=== PATIENT | female | born 1960 | race Caucasian/White ===

== ENCOUNTER 2018-08-16 11:21 | Outpatient (CLI) | payer MEDICAID ==
[~2018-08-16] VITALS: Ht 162.6 cm; Wt 64.5 kg
--- NOTE | ~2018-08-16 | HEMODYNAMI ---
PATIENT:SANDRA DUPONT MEDICAL RECORD: [id number] : 64 LOCATION:[facility] ADMISSION DATE: 08/16/18 Generatedon:08/16/201815:05 Patient name: SANDRA DUPONT Patient #: [id number] SSN: DO B: 1960 Date of study: 08/16/2018 Page: Of Hemodynamic Procedure Report Patient Data Patient Demographics Procedure consent was obtained First Name: SANDRA Gender: Female Last Name: CRESENCIO : 1960 [facility] Initial: HOSSEIN Age: 58 year(s) Patient #: [id number] Race: Unknown Additional ID: [id number] Contact details [address]: [address] [place] [address] State: [place] City: [place] Zip code: [address] Admission Admission Data Admission Date: 08/16/2018 Admission Time: 11:21 Procedure Procedure Types Cath Procedure Diagnostic Procedure LHC LHC w/Coronaries Sedation Charges Moderate Sedation up to 15 minutes PCI Procedure Coronary Stent Coronary Stent Initial Procedure Description Procedure Date Procedure Date: 08/16/2018 Procedure Start Time: 14:46 Procedure End Time: 15:01 Procedure Staff Name Function Aman Westfall MD Performing Physician Fely Carrasco RT Monitor Virgil Cano RT Scrub Janel Cisneros RN Nurse Procedure Data Cath Procedure Fluoroscopy Diagnostic fluoroscopy Total fluoroscopy Time: 3.6 time: 3.6 min min Diagnostic fluoroscopy Total fluoroscopy dose: 131 dose: 131 mGy mGy Contrast Material Contrast Material Type Amount (ml) Isovue 300 77 Entry Location Entry Primary Successful Side Size Upsize Upsize Entry Closure Frankel ccessful Closure Location (Fr) 1 (Fr) 2 (Fr) Remarks Device Remarks Radial Right 6 Fr Mechanical artery Short Compression Estimated blood loss: 5 ml Diagnostic catheters Device Type Used For End Catheter Placement DIAGNOSTIC Burna 110cm 5 Multi-vessel Fr catheter ([id number]) Angiography Procedure Complications No complications Procedure Medications Medication Administration Route Dosage 0.9% NaCl I.V. 100 ml/hr Oxygen etCO2 Nasal cannula 2 l/min Lidocaine 2% added to field 20 Heparin Flush Bag added to field 2 bags (1000units/500ml NS) Radial Cocktail added to field 1 syringe (Verapomil 2mg/Nitro 400mcg/Heparin 1500units) Versed I.V. 2 mg Fentanyl I.V. 50 mcg Heparin Bolus I.V. 5000 units Integrilin (Bolus I.V. 5.6 ml 2mg/ml) Plavix P.O. 600 mg Hemodynamics Rest Heart Rate: 76 (bpm) Pressure Samples Time Site Value (mmHg) Purpose Heart Use Rate(bpm) 14:50 LV 5/-32,-9 Snapshot 93 Gradients Valve Time Site Site Mean SEP/DFP Peak To Heart Use 1 2 (mmHg) (sec/min) Peak Rate (mmHg) (bpm) Aortic 14:50 LV AO 90 Snapshots Pre Cath Intra NCS Post Cath Vital Signs Time Heart Resp SPO2 etCO2 NIBP (mmHg) Rhythm Pain Sedation Rate (ipm) (%) (mmHg) Status Level (bpm) 14:42:11 73 19 97 32 130/74(104) NSR 0 (11) 10(A) , No pain 14:46:23 81 18 98 22.4 116/70(90) NSR 0 (11) 10(A) , No pain 14:51:20 86 21 98 29.8 108/61(88) NSR 0 (11) 9(A) , No pain 14:55:28 82 21 98 32 122/65(97) NSR 0 (11) 9(A) , No pain 14:59:40 80 21 98 30.5 118/67(98) NSR 0 (11) 10(A) , No pain Medications Time Medication Route Dose Verified Delivered Reason Not es Effectiveness by by 14:48:23 0.9% NaCl I.V. 100 Aman Islas used for ml/hr Malou Blayne procedure MD SANTOS 14:48:29 Oxygen etCO2 2 l/min Aman Islas used for Nasal Malou Blayne procedure cannula MD SANTOS 14:48:36 Lidocaine 2% added 20ml Aman Newton for local to vial Malou Malou anesthetic field MD BUNCH 14:48:41 Heparin Flush added 2 bags Aman Newton used for Bag to Malou Malou procedure (1000units/500ml field MD BUNCH NS) 14:48:50 Radial Cocktail added 1 Aman Newton used for (Verapomil to syringe [facility] procedure 2mg/Nitro field MD BUNCH 400mcg/Heparin 1500units) 14:48:58 Versed I.V. 2 mg Aman Gallaghera for sedation St Maged Cisneros MD RN 14:49:05 Fentanyl I.V. 50 mcg Aman Islas for sedation St Maged Cisneros MD, RN 14:55:18 Heparin Bolus I.V. 5000 Aman Gallaghera for hebert ified units [facility] anticoagulation with Dr. MD SANTOS [place] 14:55:34 Integrilin I.V. 5.6 ml Aman Gallaghera for was yao (Bolus 2mg/ml) MalouMaged Cisneros antiplatelet 4.4mL RN therapy 14:55:58 Plavix P.O. 600 mg Aman Gallaghera for Cyclone Blayne antiplatelet MD SANTOS therapy Procedure Log Time Note 14:22:15 Diagnostic Cath Status : Elective 14:23:15 Virgil Cano RT(R) sent for patient. Start room use. 14:23:16 Time tracking: Regular hours (M-F 7:00 - 5:00) 14:23:23 Plan of Care:Hemodynamics will remain stable., Cardiac rhythm will remain stable., Comfort level will be maintained., Respiratory function will remain adequate., Patient/ family verbilizes understanding of procedure., Procedure tolerated without complication., Recovers from procedure without complications.. 14:29:48 Patient received from Pre/Post Procedure Room to CCL 3 Alert and oriented. Tansferred to table in Supine position. 14:29:50 Warm blankets applied, and risa hugger turned on for patient comfort. 14:29:50 Correct patient and procedure confirmed by team. 14:29:53 Signed procedure consent form obtained from patient. 14:29:55 ECG and BP/O2 sat monitors applied to patient. 14:41:08 Vital chart was started 14:41:10 Baseline sample Acquired. 14:41:14 Rhythm: sinus rhythm 14:41:15 Full Disclosure recording started 14:41:20 H&P Date Dictated: 08/16/2018 Within 30 days and on chart., H&P Addendum completed by physician on day of procedure. (MUST COMPLETE FOR ALL OUTPATIENTS). 14:41:46 Pre-procedure instructions explained to patient. 14:41:47 Pre-op teaching completed and patient verbalized understanding. 14:41:48 Family in waiting room. 14:41:50 Patient NPO since Midnight. 14:41:51 Is the patient allergic to Iodine/contrast media? No. 14:41:52 Was the patient premedicated? No 14:41:53 Is patient on blood thinner?No 14:41:55 Patient diabetic? No. 14:41:58 Previous problem with sedation/anesthesia? No ? 14:41:59 Snore? Yes 14:42:01 Sleep apnea? No 14:42:02 Deviated septum? No 14:42:03 Opens mouth fully? Yes 14:42:04 Sticks out tongue? Yes 14:42:07 Airway obstruction? Yes copd 14:42:13 Dentures? Yes in tight 14:42:17 Pre procedure: right dorsailis pedis pulse 1+ Palpable, but thready & weak; easily obliterated 14:42:19 Pre procedure: left dorsailis pedis pulse 1+ Palpable, but thready & weak; easily obliterated 14:42:21 Patient pain scale 0/10 ?. 14:42:27 IV patent on arrival in left forearm with 0.9% NaCl at [facility]. 14:42:29 Lab results completed and on chart. 14:42:33 Right Radial & Right Groin area was prepped with chlora-prep and draped in sterile fashion 14:42:34 Alarms reviewed by R. N. 14:42:34 Sharps counted by scrub and verified by R.N. 14:42:36 Physician arrived 14:42:36 --------ALL STOP TIME OUT------ 14:42:36 Final Timeout: patient, procedure, and site verified with staff and physician. All members of the team are in agreement. 14:42:39 Right Radial & Right Groin site verified by team. 14:42:43 Maximum allowable Isovue 300 dose 300ml. Physician notified. (300ml for normal creatinines. For patients with creatinine of 1.7 or higher multiply weight(kg) x 5 divided by creatinine.) 14:42:47 Fire Safety Assessment: A--An alcohol-based skin anteseptic being used preoperatively., C--Open oxygen or nitrous oxide is being used., D--An ESU, laser, or fiber-optic light is being used. 14:42:50 Physical assessment completed. ASA score P 2 - A patient with mild systemic disease as per Aman Westfall MD. 14:42:54 Sedation plan: IV Moderate Sedation Medication:Versed, Fentanyl 14:42:57 Use device set Radial Dx or PCI 14:42:58 ACIST Syringe (43132) opened to sterile field. 14:42:59 Medline Cath Pack ([id number]) opened to sterile field. 14:42:59 Bag Decanter (2002S) opened to sterile field. 14:43:00 DIAGNOSTIC WIRE .035 260cm J wire (949680) opened to sterile field. 14:43:00 ACIST Hand Control (46053) opened to sterile field. 14:43:00 ACIST Manifold (42409) opened to sterile field. 14:43:01 Tegaderm 4 x 4 (1626W) opened to sterile field. 14:43:01 MBrace Wrist Support ([id number]) opened to sterile field. 14:43:02 SHEATH 6FR Slender (78-2970) opened to sterile field. 14:46:39 Procedure started. 14:46:47 Local anesthetic to right radial artery with Lidocaine 2% by Aman Westfall MD.INITIAL ACCESS ONLY 14:48:23 0.9% NaCl 100 ml/hr I.V. was administered by Janel Cisneros RN; used for procedure; 14:48:27 A 6 Fr Short sheath was inserted into the Right Radial artery 14:48:29 Oxygen 2 l/min etCO2 Nasal cannula was administered by Janel Cisneros RN; used for procedure; 14:48:36 Lidocaine 2% 20ml vial added to field was administered by Aman Westfall MD; for local anesthetic; 14:48:37 A DIAGNOSTIC Burna 110cm 5 Fr catheter ([id number]) was advanced over the wire and used for Multi-vessel Angiography. 14:48:41 Heparin Flush Bag (1000units/500ml NS) 2 bags added to field was administered by Aman Westfall MD; used for procedure; 14:48:43 Zero performed for pressure channel P1 14:48:50 Radial Cocktail (Verapomil 2mg/Nitro 400mcg/Heparin 1500units) 1 syringe added to field was administered by Aman Westfall MD; used for procedure; 14:48:52 Zero performed for pressure channel P1 14:48:58 Versed 2 mg I.V. was administered by Janel Cisneros RN; for sedation; 14:49:00 Zero performed for pressure channel P1 14:49:05 Fentanyl 50 mcg I.V. was administered by Janel Cisneros RN; for sedation; 14:49:17 Baseline sample Acquired. 14:50:05 LV hemodynamics recorded. 14:50:06 LV gram done using CHAPA 14:50:08 Injector settings: Ml/sec: 5, Volume: 15, 14:50:23 EF : 55 % 14:50:42 LCA angiography performed. 14:51:58 RCA angiography performed. 14:52:03 Injector settings: Ml/sec: 3, Volume: 6, 14:52:30 Catheter removed. 14:55:11 INFLATOR Merit BasixCompak (XF2212) opened to sterile field. 14:55:17 WHISPER 300cm guide wire ([id number]) opened to sterile field. 14:55:18 Heparin Bolus 5000 units I.V. was administered by Janel Cisneros RN; for anticoagulation; verified with Dr. Stevens 14:55:34 Integrilin (Bolus 2mg/ml) 5.6 ml I.V. was administered by Janel Cisneros RN; for antiplatelet therapy; wasted 4.4mL 14:55:45 GUIDE 6FR XBLAD 3.5 catheter ([id number]) opened to sterile field. 14:55:56 6 Fr xblad 3.5 guide catheter was inserted over the wire 14:55:58 Plavix 600 mg P.O. was administered by Janel Cisneros RN; for antiplatelet therapy; 14:56:20 whisper wire advanced. 14:56:23 Wire advanced across lesion. 14:58:22 Place stent Inflation Number: 1 A EDWARD OTW 3.0 x 12 stent ([id number]) was prepped and advanced across the Mid CX. The stent was deployed at 14 SYLVIE for 0:30 (min:sec). 14:59:15 Stent catheter was removed intact over wire. 14:59:15 Wire removed. 14:59:16 Guide catheter removed. 14:59:19 TR BAND Standard ([id number]) opened to sterile field. 14:59:28 Sheath removed intact; hemostasis achieved with Mechanical Compression to the Right Radial artery. 14:59:29 Procedure ended.(Physican Out) 14:59:45 Fluoroscopy time 03.60 minutes. 14:59:49 Fluoroscopy dose: 131 mGy 14:59:49 Flurop Dose total: 131 14:59:57 Contrast amount:Isovue 300 77ml. 14:59:59 Sharps counted by scrub and verified by R.N. 15:00:02 TR band inflated with 10cc of air. 15:00:04 Insertion/operative site no bleeding no hematoma. 15:00:07 Post right radial artery:stable 15:00:09 Post Procedure Pulses reassessed and unchanged 15:00:12 Post procedure rhythm: unchanged. 15:00:15 Estimated blood loss: 5 ml 15:00:17 Post procedure instruction explained to patient.Patient verbalizes understanding. 15:00:17 Patient needs reinforcement of post procedure teaching. 15:00:45 Procedure type changed to Cath procedure, Diagnostic procedure, LHC, LHC w/Coronaries, Sedation Charges, Moderate Sedation up to 15 minutes, PCI procedure, Coronary Stent, Coronary Stent Initial 15:00:46 Procedure and supply charges have been captured, reviewed, submitted and are correct. 15:00:51 Procedure Complication : No complications 15:00:54 Vital chart was stopped 15:00:56 See physician's report for complete and final results. 15:00:59 Report given to Pre/Post Procedure Room. 15:01:02 Procedure ended. 15:01:02 Full Disclosure recording stopped 15:01:13 ACC-PCI Only Patient was given prescriptions, or instructed by Aman Westfall MD to start/continue the following medications upon discharge: Plavix 15:01:15 End room use (Document Last) Intervention Summary Intervention Notes Time ActionType Lesion and Equipment Action# Pressure Duration Attributes Used 14:58:22 Place stent Mid CX EDWARD OTW 3.0 1 14 00:30 x 12 stent ([id number]) Device Usage Item Name Manufacture Quantity Catalog Hospital Part Current Mini mal Lot# / Number Charge Number Stock Stock Serial# Code ACIST Syringe Acist 1 99103 628818 984651 870272 20 (28563) VHT Medline Cath Medline 1 [id number] 028620 23885 083207 5 Pack ([id number]) Bag Decanter Microtek 1 380060 47186 177937 5 () Medical Inc. DIAGNOSTIC St Donnie 1 780178 345749 234589 906447 30 WIRE .035 260cm J wire (969025) ACIST Hand Acist 1 13192 076146 109663 470806 5 Control Medical (39473) Systems Inc ACIST Acist 1 29095 362159 682559 266994 5 Manifold Medical (19080) Systems Inc Tegaderm 4 x 3M 1 1626W 857706 998598 590394 5 4 (1626W) MBrace Wrist Advanced 1 140-0250-00 122423 20971 666235 5 Support Vascular ([id number]) Dynamics SHEATH 6FR Terumo 1 [id number] 564713 112976 247632 5 Slender (80-1060) DIAGNOSTIC Terumo 1 40-7743 242662 388485 413793 5 Burna 110cm 5 Fr catheter (068444) INFLATOR Merit 1 RW3541 887687 355927 196963 15 [facility] Medical BasixCompak (XZ5150) WHISPER 300cm Meraz 1 [id number] 490485 899552 741463 5 guide wire Vascular (1213623NP) GUIDE 6FR Cardinal 1 [id number] 732573 533458 550352 10 XBLAD 3.5 Health catheter (39031252) EDWARD OTW 3.0 Medtronic 1 [id number] 222878 6123968 670326 5 [id number] x 12 stent ([id number]) TR BAND Terumo 1 [id number] 424955 567040 173305 40 Standard ([id number]) Signature Audit [place] Stage Time Signature Unsigned Intra-Procedure 08/16/2018 Fely Carrasco 3:05:17 PM RT(R) Signatures Monitor : Fely Carrasco RT Signature : Date : Time : [facility] [address] [place] [address]
[2018-08-16] MEDS ORDERED: COZAAR50 MG (11:32)
[2018-08-16] MEDS ORDERED: SPIRIVA18 MCG INH (11:32)
[2018-08-16] MEDS ORDERED: SYMBICORT 16010.2 GM INH (11:32)
[2018-08-16] MEDS ORDERED: PRAVACHOL20 MG PO (11:33)
[2018-08-16] MEDS ORDERED: TYLENOL W/CODEI1 TAB PO (11:34)
[2018-08-16 11:49] VITALS: BP 150/65; Ht 162.6 cm; Wt 64.5 kg
[2018-08-16 11:57] LABS: EOSINOPHILS 2.1 % (0-7); HEMATOCRIT 46.5 % (36.0-48.0); HEMOGLOBIN 16.1 g/dL (12-16); IMMATURE GRANULOCYTES 0.3 % (0-5); LYMPHOCYTES 22.8 % (15-50); MCH 34.3 pg (26.0-34.0); MCHC 34.6 g/dL (31.0-37.0); MCV 99.1 fL (80.0-100.0); MEAN PLATELET VOLUME 10.2 fL (7.4-10.4); MONOCYTES 4.5 % (2-11); NEUTROPHILS 69.3 % (40-80); RBC 4.69 10x6/uL (4.00-5.40); RDW 12.7 % (11.5-14.5); WBC 7.2 10x3/uL (4.8-10.8)
[2018-08-16 11:59] LABS: PLATELET COUNT 176 10x3/uL (130-400)
[2018-08-16 12:10] LABS: CALC OSMOLALITY 274 mosm/kg (275-300); CALCIUM 9.3 mg/dL (8.5-10.1); CARBON DIOXIDE 26.3 mmol/L (21.0-32.0); CHLORIDE - SERUM 102 mmol/L (98-107); CREATININE - SERUM 0.7 mg/dL (0.6-1.3); GLUCOSE 120 mg/dL (74-106); POTASSIUM - SERUM 3.7 mmol/L (3.5-5.1); SODIUM 138 mmol/L (136-145); UREA NITROGEN 8 mg/dL (7-18); eGFR NON AFRICAN AMERICAN > 90 mL/min (90-120)
--- NOTE | 2018-08-16 15:15 | NUR ---
PT RECEIVED FROM CONCRETER VIA STRETCHER FOR RECOVERY. TR BAND AND IMMOBILIZER IN PLACE. NO BLEEDING OR HEMATOMA NOTED, DRESSING CDI. CAP REFILL BRISK. HR NSR RATE 74, BP 147/72, O2 SAT 97 ON 2L/NC. PT AWAKE SLIGHTLY DROWSY. DENIES PAIN OR DISCOMFORT. REQUESTED SANDWICH AND DRINK. CALL LIGHT IN REACH.
[2018-08-16] MEDS ORDERED: PLAVIX75 MG PO (15:17)
--- NOTE | 2018-08-16 15:30 | NUR ---
PT DOING WELL, SITTING UP EATING. TR BAND IN PLACE NO BLEEDING OR HEMATOMA NOTED. MEPILEX BORDER DRESSING APPLIED TO SKIN TEAR ON R ARM. VSS. CALL LIGHT IN REACH
--- NOTE | 2018-08-16 15:59 | NUR ---
PT RESTING WATCHING TV. TR BAND AND IMMOBILIZER IN PLACE, DRESSING CDI NO BLEEDING OR SWELLING NOTED. ARM REMAINS PINK AND WARM, CAP REFILL BRISK. PT DENIES PAIN OR NEEDS. CALL LIGHT IN REACH
--- NOTE | 2018-08-16 16:28 | NUR ---
PT AWAKE VISITING W FAMILY. TR BAND IN PLACE, DRESSING CDI NO BLEEDING OR HEMATOMA NOTED. VSS. PT DENIES PAIN OR NEEDS AT THIS TIME. CALL LIGHT IN REACH
--- NOTE | 2018-08-16 17:05 | NUR ---
PT RESTING COMFORTABLY WATCHING TV. DENIES PAIN OR NEEDS AT THIS TIME. TR BAND IN PLACE, DRESSING REMAINS CDI NO BLEEDING OR HEMATOMA NOTED. CALL LIGHT IN REACH
--- NOTE | 2018-08-16 17:27 | NUR ---
TR BAND IN PLACE, DRESSING REMAINS CDI NO BLEEDING OR SWELLING NOTED. MEPELIX DRESSING OVER SKIN TEAR WAS BLEEDING THROUGH. SITE CLEANED AND NEW MEPELIX APPLIED. VSS, PT DENIES PAIN OR ANY OTHER NEEDS. AT BEDSIDE, CALL LIGHT IN REACH
--- NOTE | 2018-08-16 18:02 | NUR ---
PT RESTING COMFORTABLY WATCHING TV. 3 CC AIR REMOVED FROM TR BAND PER PROTOCOL NO BLEEDING OR SWELLING NOTED. NO MORE BLEEDING FROM SKIN TEAR AREA. HR 76 NSR, BP 122/67, 02 SAT 93. CALL LIGHT IN REACH, DENIES NEEDS.
--- NOTE | 2018-08-16 18:24 | NUR ---
PT RESTING W/O DISCOMFORT. DISCHARGE INSTRUCTIONS REVIEWED W PT AND , BOTH VERBALIZED UNDERSTANDING. O2 REMOVED. CALL LIGHT IN REACH
--- NOTE | 2018-08-16 18:40 | NUR ---
IV REMOVED W CATH INTACT. MONITORS REMOVED. 4 ADD'L CC REMOVED FROM TR BAND W/O BLEEDING OR SWELLING. PT UP TO DRESS FOR DISCHARGE W ASSIST FROM .
--- NOTE | 2018-08-16 18:49 | NUR ---
PT AMBULATED TO BR VOIDED W/O DIFFICULITY. TR BAND AND REMAINING AIR REMOVED. NO BLEEDING OR SWELLING NOTED.
--- NOTE | 2018-08-16 18:50 | NUR ---
PT DISCHARGED VIA WC TO PRIVATE VEHICLE WITH ALL BELONGS.
--- NOTE | 2018-08-17 13:13 | OP ---
PATIENT NAME: SANDRA DUPONT MEDICAL RECORD: [id number] :64 LOCATION:D.CAT ADMISSION DATE: SURGEON: LIONEL KU MD DATE OF OPERATION: 08/16/2018 PROCEDURE: Left heart catheterization, selective coronary angiography, right radial approach. CATHETERS: Barnett catheter and radial sheath. The procedure was well tolerated. We proceeded to immediate PTCA and stenting when procedure was finished. FINDINGS: Left ventriculography in 30-degree CHAPA view: Normal wall motion and normal systolic function. CORONARY ANATOMY: LEFT MAIN: Left main is free of disease. LAD: Free of disease in the diagonal system. CIRCUMFLEX: After takeoff of large OM, has a 90% stenosis. RIGHT CORONARY ARTERY: Free of disease. PLAN: Intervention momentarily. DESCRIPTION OF PROCEDURE: Using indwelling sheath, EBU 3.5 guiding catheter provided good guide catheter support followed by 300-cm Whisper wire was placed across the tightly occluded circ down this portion of the vessel. Stent deployed was 3.0 x 15 mm Rommel drug-eluting stent up to 14 atmospheres for 45 seconds. Final angiography shows excellent resolution of 90% stenosis with no significant residual. SREEKANTH flow was 3 throughout the procedure. Integrilin was used during the case. Sheath was closed with ExoSeal device. Plavix was loaded in the lab. TRANSINT:[id number] Voice Confirmation ID: [id number] DOCUMENT ID: [id number] LIONEL KU MD at 1313 CC: [id number] DICTATION DATE: 08/16/18 1502 MAKE UP GIRL: 08/16/18 1642 DEP CLI 08/16/18 [id number] [place] [address]
== END 2018-08-16 17:45 | disposition home or self-care (01) ==
LOC: D.CATH 11:21
PROVIDERS: ATTEND Internal Medicine Interventional Cardiology
DX: I25.119 Atherosclerotic heart disease of native coronary artery with unspecified angina pectoris (principal); Z01.812 Encounter for preprocedural laboratory examination